=== PATIENT | male | born 1960 | race Caucasian/White ===

== ENCOUNTER → 2017-10-30 | Outpatient (CLI) | payer OTHER ==
--- NOTE | 2017-10-30 12:01 | Diagnostic Imaging Report ---
EXAMINATION: Magnetic resonance imaging of the left knee without intravenous contrast DATE: 10/30/2017. COMPARISON: None. INDICATION: 57-year-old male, left knee pain for two weeks. No known recent injury. TECHNIQUE: Multiplanar, multisequence non contrast enhanced MR imaging was accomplished. FINDINGS: MENISCI: There is irregularity of the free edge of the body and posterior horn of the medial meniscus. There is complex multidirectional tear involving the posterior horn of the medial meniscus. There is also likely an oblique tear extending to involve the anterior horn of the medial meniscus. There is medial meniscal extrusion which is measured at approximately 4 mm. There is a longitudinal horizontal tear involving the anterior horn, body, and posterior horn of the lateral meniscus. LIGAMENTS AND TENDONS: The anterior and posterior cruciate ligaments are intact. The medial collateral ligament is intact. The iliotibial band, mid third lateral capsular ligament, fibular collateral ligament, biceps femoris tendon and conjoined tendon are intact. The quadriceps tendon and patella ligament are intact. JOINT: There are multiple full-thickness cartilage fissures of the cartilage of the lateral patellar facet. There is generalized approximately 50-75% thinning of the lateral patellar facet cartilage. There are areas of full-thickness fissure involving the medial patellar facet cartilage as well as the median patellar ridge. There is approximately 50-75% cartilage loss of the central and lateral aspect of the femoral trochlea. There is a central osteophyte associated with the femoral trochlea. There are broad areas of full-thickness cartilage loss of the mid weightbearing portion of the medial femoral condyle and subjacent medial tibial plateau. There is a full-thickness cartilage fissure involving the mid weightbearing portion of the lateral femoral condyle with subjacent approximately 25-50% thinning of the cartilage of the lateral tibial plateau. There is a moderate sized knee joint effusion with low level synovitis. BONE: There is degenerative related subchondral edema in the medial femoral condyle and medial tibial plateau. Low level edema like signal in the lateral tibial plateau may also be degenerative related. There is degenerative related marrow edema associated with the patellofemoral compartment. There is no acute fracture. There is no evidence of osteonecrosis. BURSAE AND SOFT TISSUES: There is a Ness's cyst which measures 2.6 x 2.5 x 5.4 cm in size. There is nonspecific predominantly prepatellar subcutaneous edema. IMPRESSION: 1. Extensive complex tear involving the medial meniscus as described above with 4 mm medial meniscal extrusion. 2. Longitudinal horizontal type tear involving the anterior horn, body, and posterior horn of the lateral meniscus. 3. Intact anterior and posterior cruciate ligaments. Additional ligaments and tendons are intact. 4. Severe tricompartmental arthritis with moderate knee joint effusion and low level synovitis. 5. No acute fracture. No evidence of osteonecrosis. 6. Ness's cyst. Dictated by: Dictated on workstation # [id number]
== END ==
LOC: RAD 10:21
PROVIDERS: ATTEND Internal Medicine
DX: S83.232A Complex tear of medial meniscus, current injury, left knee, initial encounter (principal); S83.282A Other tear of lateral meniscus, current injury, left knee, initial encounter; M17.12 Unilateral primary osteoarthritis, left knee; M71.22 Synovial cyst of popliteal space [Baker], left knee; M65.88 Other synovitis and tenosynovitis, other site
CPT/HCPCS: 73721